=== PATIENT | female | born 1980 ===

== ENCOUNTER 2018-04-02 07:46 | Day surgery (SDC) | payer MEDICAID ==
[2018-04-02] MEDS ORDERED: Lactated Ringer's 500 ML IV ONE (08:12)
[2018-04-02] MEDS ORDERED: Propofol 10 mg/ml Inj (20 ML) ONE (10:01)
[2018-04-02 10:25] VITALS: TEMP 98
[2018-04-02 10:45] VITALS: BP 100/67; PULSE 72; RESP 14; O2SAT 100
== END 2018-04-02 10:46 | disposition home or self-care (01) ==
LOC: H.ENDO 07:46
PROVIDERS: ATTEND Internal Medicine Gastroenterology
DX: R10.13 Epigastric pain (principal); K44.9 Diaphragmatic hernia without obstruction or gangrene; K31.89 Other diseases of stomach and duodenum
CPT/HCPCS: 43239; 88305; J2704; J7120